=== PATIENT | male | born 1995 | race Caucasian/White ===

== ENCOUNTER 2016-11-25 22:28 | Emergency (ER) | payer BC ==
[~2016-11-25] VITALS: Wt 86.2 kg
[~2016-11-25 22:28] MED LIST: BACTRIM 400 MG-1 TAB PO; FLEXERIL10 MG PO; MOTRIN800 MG PO; PERCOCET 325 MG1 TA2 PO
[2016-11-25] MEDS ORDERED: VYVANSE40 MG PO (22:45)
[2016-11-26] MEDS ORDERED: CEPHALEXIN500 M1 PO (13:05)
== END 2016-11-26 | disposition home or self-care (01) ==
LOC: ED 22:28
DX: S61.411A Laceration without foreign body of right hand, initial encounter (principal); Z88.7 Allergy status to serum and vaccine; Z88.6 Allergy status to analgesic agent; W26.0XXA Contact with knife, initial encounter; Y93.G1 Activity, food preparation and clean up; Y92.9 Unspecified place or not applicable; Y99.9 Unspecified external cause status

== ENCOUNTER 2016-11-26 12:13 | Emergency (ER) | payer BC ==
[~2016-11-26] VITALS: Wt 88.5 kg
[~2016-11-26 12:13] MED LIST changes: +VYVANSE40 MG PO
[2016-11-26] MEDS ORDERED: CEPHALEXIN500 M1 PO (13:05)
== END 2016-11-26 13:23 | disposition home or self-care (01) ==
LOC: ED 12:13
DX: S61.411A Laceration without foreign body of right hand, initial encounter (principal); W26.0XXA Contact with knife, initial encounter; Y93.G1 Activity, food preparation and clean up; Y92.9 Unspecified place or not applicable; Y99.9 Unspecified external cause status

== ENCOUNTER 2018-09-12 11:52 | Emergency (ER) | payer OTHER, BC ==
[~2018-09-12] VITALS: Ht 182.8 cm; Wt 77.1 kg
[~2018-09-12 11:52] MED LIST changes: +CEPHALEXIN500 M1 PO
[2018-09-12] MEDS ORDERED: VISTARIL50 MG PO (12:06)
[2018-09-12 15:37] LABS: BILIRUBIN 2+ (NEGATIVE); BLOOD NEGATIVE (NEGATIVE); CLARITY CLEAR (CLEAR); COLOR YELLOW (YELLOW); GLUCOSE NEGATIVE (NEGATIVE); KETONE 3+ (NEGATIVE); LEUKO ESTERASE NEGATIVE (NEGATIVE); NITRITE NEGATIVE (NEGATIVE); SPECIFIC GRAVITY >= 1.030 (1.005-1.030); UROBILINOGEN 0.2 E.U./dl (0.2-1.0)
[2018-09-12 15:54] LABS: BACTERIA 1+; EPITHELIAL CELLS 0-2; MUCOUS TRACE; WBC 0-2 wbc/hpf (0-5)
[2018-09-12] MEDS ORDERED: NORCO 10-325 T1 EACH PO (17:05)
== END 2018-09-12 17:45 | disposition home or self-care (01) ==
LOC: ED 11:52
PROVIDERS: Emergency Medicine
DX: R51 Headache (principal); M54.2 Cervicalgia; R10.9 Unspecified abdominal pain; K92.0 Hematemesis; Z88.4 Allergy status to anesthetic agent; Z88.6 Allergy status to analgesic agent; Z79.899 Other long term (current) drug therapy; V49.9XXA Car occupant (driver) (passenger) injured in unspecified traffic accident, initial encounter; Y93.89 Activity, other specified; Y92.488 Other paved roadways as the place of occurrence of the external cause; Y99.8 Other external cause status

== ENCOUNTER 2020-06-20 02:05 | Emergency (ER) | payer BC ==
[~2020-06-20] VITALS: Ht 185.4 cm; Wt 85.3 kg
[~2020-06-20 02:05] MED LIST changes: +NORCO 10-325 T1 EACH PO; +VISTARIL50 MG PO
[2020-06-20 03:00] LABS: BASO % 0.3 % (0.0-1.0); EOS # 0.5 10*3/uL (0.0-0.4); EOS % 7.1 % (1.0-4.0); HEMATOCRIT 46.9 % (42.0-52.0); LYMPH # 2.2 10*3/uL (1.3-4.4); LYMPH % 32.4 % (27.0-41.0); MEAN CELL VOLUME 90.7 fl (80.0-94.0); MEAN CORPUSCULAR HGB 31.5 pg (27.0-31.0); MEAN CORPUSCULAR HGB CONC 34.8 g/dl (33.0-37.0); MEAN PLATELET VOLUME 8.6 fl (9.6-12.3); MONO # 0.4 10*3/uL (0.1-1.0); MONO % 6.2 % (3.0-9.0); NEUT # 3.7 10*3/uL (2.3-7.9); NEUT % 53.9 % (47.0-73.0); PLATELET COUNT AUTOMATED 208 10*3/uL (130-400); RED BLOOD COUNT 5.17 10*6/uL (4.50-5.90); RED CELL DISTRI WIDTH 12.2 % (0-14.5); WHITE BLOOD COUNT 6.9 10*3/uL (4.8-10.8)
[2020-06-20 03:16] LABS: ALBUMIN 3.8 gm/dl (3.1-4.5); ALKALINE PHOSPHATASE 68 U/L (45-117); BUN 12 mg/dl (7-24); CHLORIDE 106 mmol/L (98-107); CREATININE 1.01 mg/dL (0.70-1.30); POTASSIUM 3.5 mmol/L (3.5-5.1); SGOT/AST 12 IU/L (3-35); SGPT/ALT 20 U/L (12-78); SODIUM 139 mmol/L (136-145); TOTAL PROTEIN 7.2 gm/dL (6.4-8.2)
[2020-06-20 03:29] LABS: TROPONIN I < 0.015 ng/ml (<0.045)
== END 2020-06-20 04:49 | disposition home or self-care (01) ==
LOC: ED 02:05
PROVIDERS: Emergency Medicine
DX: R07.89 Other chest pain (principal); M25.512 Pain in left shoulder

== ENCOUNTER → 2021-06-17 | Outpatient (CLI) | payer OTHER | END | disposition home or self-care (01) | LOC: COVID19 15:13 | PROVIDERS: ATTEND Internal Medicine | DX: U07.1 COVID-19 (principal) ==

== ENCOUNTER → 2021-11-04 | Outpatient (CLI) | payer OTHER | END | disposition home or self-care (01) | LOC: CT 01:21 | PROVIDERS: ATTEND Physician Assistant | DX: D73.89 Other diseases of spleen (principal); Z90.49 Acquired absence of other specified parts of digestive tract; K59.00 Constipation, unspecified ==

== ENCOUNTER → 2021-12-02 | Outpatient (CLI) | payer OTHER | END | disposition home or self-care (01) | LOC: US 10:00 | PROVIDERS: ATTEND Physician Assistant | DX: D73.4 Cyst of spleen (principal) ==

== ENCOUNTER 2024-01-05 03:21 | Emergency (ER) | payer BC ==
[~2024-01-05] VITALS: Ht 185.4 cm; Wt 99.8 kg
[2024-01-05] MEDS ORDERED: LORazepam 1 MG TAB PO ONE (03:40)
== END 2024-01-05 04:43 | disposition home or self-care (01) ==
LOC: ED 03:21
DX: F41.9 Anxiety disorder, unspecified (principal); R20.2 Paresthesia of skin; R07.89 Other chest pain; R20.0 Anesthesia of skin; Z88.8 Allergy status to other drugs, medicaments and biological substances; Z88.5 Allergy status to narcotic agent